=== PATIENT | female | born 1955 | race Caucasian/White ===

== ENCOUNTER 2019-02-28 12:07 | Emergency (ER) | payer MEDICARE, OTHER ==
[~2019-02-28] VITALS: Ht 167.6 cm; Wt 73.9 kg
--- NOTE | 2019-02-28 12:19 | PHYS DOC ---
Adult General Chief Complaint Chief Complaint: BACK PAIN OR INJURY [facility] HPI Patient is a 64-year-old female who presents with complaint of chronic lower back pain. Patient is out at the medical [place] and has a history of chronic back pain ever since falling as a child. Patient admits to history of fibromyalgia. Patient states that she takes hydrocodone and tramadol for her pain and states that pain is been present since yesterday after going for radiation treatment for breast cancer. Patient states that she thinks that lying down on the hard metal plate while receiving the treatment had contributed to the back pain. She states that she has been given both hydrocodone and tramadol today without relief of her pain. She rates pain currently at a 4 out of 10. She states the pain radiates down both of her legs. She describes pain as a deep ache and sharp at the same time.[] Review of Systems Review of Systems Constitutional: Denies fever or chills [] Respiratory: Denies cough or shortness of breath [] Cardiovascular: No additional information not addressed in HPI [] GI: Denies abdominal pain, nausea, vomiting or diarrhea [] : Denies dysuria or hematuria [] Musculoskeletal: Complains of lower back and bilateral buttock pain [] Integument: Denies rash or skin lesions [] Neurologic: Denies loss or bowel or bladder control[] Physical Exam Physical Exam Constitutional: Well developed, well nourished, no acute distress, non-toxic appearance. [] Neck: Normal range of motion, no tenderness, supple, no stridor. [] Cardiovascular:Heart rate regular rhythm, no murmur [] Lungs & Thorax: Bilateral breath sounds clear to auscultation [] Abdomen: Bowel sounds normal, soft, no tenderness. [] Skin: Warm, dry, no erythema, no rash. [] Back: Patient reports to tenderness to palpation primarily around the lumbosacral junction and around the bilateral sacral sulcus. [] Extremities: No tenderness, no cyanosis, no clubbing, ROM intact. [] Neurologic: Alert and oriented X 3, no focal deficits noted. [] EKG EKG [] Radiology/Procedures Radiology/Procedures [] Course & Med Decision Making Course & Med Decision Making Pertinent Labs and Imaging studies reviewed. (See chart for details) [] Dragon Disclaimer Dragon Disclaimer This electronic medical record was generated, in whole or in part, using a voice recognition dictation system. Departure Departure: Impression: Primary Impression: Chronic back pain Disposition: 01 HOME, SELF-CARE Condition: STABLE Patient Instructions: Chronic Back Pain Problem Qualifiers Primary Impression: Chronic back pain Back pain location: back pain in unspecified location Back pain laterality: bilateral Qualified Codes: M54.9 - Dorsalgia, unspecified; G89.29 - Other chronic pain RAMONE RICARDO Jr. DO February 28, 2019 12:19
[2019-02-28 12:27] VITALS: BP 107/72
[2019-02-28] MEDS ORDERED: ORPHENADRINE CITRATE 60 MG/2 ML VIAL. IM ONE (12:30)
[2019-02-28] MEDS ORDERED: MORPHINE SULFATE 4 MG/ML DISP.SYRIN. IM ONE (12:30)
== END 2019-02-28 13:05 | disposition home or self-care (01) ==
LOC: ER 12:07
DX: G89.29 Other chronic pain (principal); M54.5 Low back pain; M79.7 Fibromyalgia
CPT/HCPCS: 96372; 99284; J2270; J2360

== ENCOUNTER 2019-05-31 11:56 | Emergency (ER) | payer MEDICARE, MEDICAID ==
[~2019-05-31] VITALS: Ht 167.6 cm; Wt 73.9 kg
--- NOTE | 2019-05-31 12:17 | PHYS DOC ---
Past History Past Medical History: Bipolar, Cancer (breast), Depression, Other Past Surgical History: Other Alcohol Use: None Drug Use: None Adult General Chief Complaint Chief Complaint: PAIN CONTROL HPI HPI Patient is a 64-year-old female presents with tailbone pain. She has had this discomfort on and off for the past year. Was having severe pain today prior to receiving her narcotic pain medicine from the assisted care facility where she resides. The administer the medicine just prior to transport by EMS and she reports feeling better. 7 history of breast cancer. She also has a history of microdiscectomy in her low back. She denies any loss of bowel or bladder control. Denies any fever. Denies any numbness or weakness. Pain is currently mild to moderate in intensity. No radiation of the discomfort.[] Review of Systems Review of Systems Constitutional: Denies fever or chills [] Eyes: Denies change in visual acuity, redness, or eye pain [] HENT: Denies nasal congestion or sore throat [] Respiratory: Denies cough or shortness of breath [] Cardiovascular: No chest pain or palpitations[] GI: Denies abdominal pain, nausea, vomiting, bloody stools or diarrhea [] : Denies dysuria or hematuria [] Musculoskeletal: See history of present illness[] Integument: Denies rash or skin lesions [] Neurologic: Denies headache, focal weakness or sensory changes [] Endocrine: Denies polyuria or polydipsia [] All other systems were reviewed and found to be within normal limits, except as documented in this note. Allergies Allergies Allergies Coded Allergies Type Severity Reaction Last Updated Verified amitriptyline Allergy Unknown 02/28/19 Yes Physical Exam Physical Exam Constitutional: Well developed, well nourished, no acute distress, non-toxic appearance. [] HENT: Normocephalic, atraumatic, bilateral external ears normal, oropharynx moist, no oral exudates, nose normal. [] Eyes: PERRLA, EOMI, conjunctiva normal, no discharge. [] Neck: Normal range of motion, no tenderness, supple, no stridor. [] Cardiovascular:Heart rate regular rhythm, no murmur [] Lungs & Thorax: Bilateral breath sounds clear to auscultation [] Abdomen: Bowel sounds normal, soft, no tenderness, no masses, no pulsatile masses. [] Skin: Warm, dry, no erythema, no rash. [] Back: Mild tenderness sacrum/coccyx region. There is no step-off or crepitus. No skin breakdown., no CVA tenderness. [] Extremities: No tenderness, no cyanosis, no clubbing, ROM intact, no edema. [] Neurologic: Alert and oriented X 3, normal motor function, normal sensory functi on, no focal deficits noted. [] Psychologic: Affect normal, judgement normal, mood normal. [] EKG EKG [] Radiology/Procedures Radiology/Procedures PROCEDURE: SACRUM & COCCYX 3V SACRUM COCCYX 3V History: Tailbone pain, history of breast cancer Comparison: None. Findings: 3 views of the sacrum and coccyx are submitted. Sacrum is poorly visualized on the AP views due to overlying stool and gas. There is some angulation of the coccyx with apex directed posteriorly, uncertain chronicity. Impression: 1. There is some angulation of the coccyx, apex directed posteriorly of uncertain chronicity. Evaluation of sacrum is limited due to bowel gas and stool. If there is suspicion for marrow replacing process, MRI may be beneficial. [] Course & Med Decision Making Course & Med Decision Making Pertinent Labs and Imaging studies reviewed. (See chart for details) ED course: Patient arrived, was placed in bed, and tolerated exam well. Exam of the sacrum and coccyx was performed with plant attendant. She was transported to and from radiology with any complications. After return of the imaging findings, these were discussed with the patient voiced understanding. Patient's pain was improved. She was discharged in improved condition. All questions were answered. Medical decision making: There is no evidence of an acute fracture or dislocation. Patient may need to have an MRI for further evaluation given her history of breast cancer however no MRI is available at [facility] and it is not of emergent necessity. No evidence of cauda equina syndrome.[] Dragon Disclaimer Dragon Disclaimer This electronic medical record was generated, in whole or in part, using a voice recognition dictation system. Departure Departure: Impression: Primary Impression: Coccygeal pain, chronic Disposition: HOME, SELF-CARE Condition: STABLE Referrals: DEANNE IGLESIAS (PCP) Follow-up in 2 days Patient Instructions: Tailbone Injury Additional Instructions: Follow-up with your regular doctor in 2 days. There is no evidence of a fracture or dislocation today on x-rays. Giving your history of previous breast cancer, you may need to have an MRI which is not available at [facility] for further evaluation. Return to the ER if worsening pain or any other concerns. Scripts Meloxicam (MELOXICAM) 7.5 Mg Tablet 7.5 MG PO DAILY for PAIN, #20 TAB Prov: OLIVA JAVIER DO 05/31/19 OLIVA JAVIER DO May 31, 2019 12:17
--- NOTE | 2019-05-31 12:41 | RAD ---
SACRUM COCCYX 3V History: Tailbone pain, history of breast cancer Comparison: None. Findings: 3 views of the sacrum and coccyx are submitted. Sacrum is poorly visualized on the AP views due to overlying stool and gas. There is some angulation of the coccyx with apex directed posteriorly, uncertain chronicity. Impression: 1. There is some angulation of the coccyx, apex directed posteriorly of uncertain chronicity. Evaluation of sacrum is limited due to bowel gas and stool. If there is suspicion for marrow replacing process, MRI may be beneficial. Electronically signed by: Hosea Tian MD (05/31/2019 12:38 PM) [facility]
[2019-05-31] MEDS ORDERED: MELO7.5T29 PO (12:59)
[2019-05-31 13:26] VITALS: BP 108/68
== END 2019-05-31 13:40 | disposition home or self-care (01) ==
LOC: ER 11:56
DX: M53.3 Sacrococcygeal disorders, not elsewhere classified (principal); G89.29 Other chronic pain; Z88.8 Allergy status to other drugs, medicaments and biological substances
CPT/HCPCS: 72220; 99284

== ENCOUNTER 2019-06-02 16:24 | Emergency (ER) | payer MEDICARE, MEDICAID ==
[~2019-06-02] VITALS: Ht 167.6 cm; Wt 73.9 kg
[~2019-06-02 16:24] MED LIST: MELO7.5T29 PO
--- NOTE | 2019-06-02 16:40 | EKG ---
[address] [address] Test Date: 2019-06-02 Test Time: 16:39:48 Pat Name: DOMINICK CHIU Department: Room: Gender: F Travel Guide: : 1955 Requested By: OLIVA JAVIER Order Number: [id number] Reading MD: Measurements Intervals [place] Rate: 86 P: 42 SD: 164 QRS: 14 QRSD: 80 T: 39 QT: 368 QTc: 443 Interpretive Statements SINUS RHYTHM R-S TRANSITION ZONE IN V LEADS DISPLACED TO THE RIGHT QRS(T) CONTOUR ABNORMALITY CONSIDER ANTEROLATERAL MYOCARDIAL DAMAGE POSSIBLY ABNORMAL ECG RI6.01 No previous ECG available for comparison
--- NOTE | 2019-06-02 16:43 | PHYS DOC ---
Past History Past Medical History: Bipolar, Cancer, Depression, Other (OLIVA JAVIER DO) Past Surgical History: Other (OLIVA JAVIER DO) Smoking: Non-smoker Alcohol Use: None Drug Use: None (OLIVA JAVIER DO) Adult General HPI HPI Patient is a 64-year-old female presents from the [facility] care facility where she resides after having an unwitnessed fall and reported change in mental status and "fixed and sluggish pupils." EMS reports notes that she has a normal respiratory rate and normal blood sugar. Patient is on narcotic pain medicines for history of tailbone pain and other pain related issues. There has been no recent change in this narcotic pain medicine dosage. Patient currently denies any chest discomfort. Per EMS port patient had some chest discomfort like her usual fibromyalgia. Patient is denying any of this chest discomfort at this time. Patient denies any nausea or vomiting. Reports that her tailbone pain for which she was seen by me 2 days ago is doing well. She does have a history of frequent falls. [] (OLIVA JAVIER DO) Review of Systems Review of Systems Constitutional: Denies fever or chills [] Eyes: Denies change in visual acuity, redness, or eye pain [] HENT: Denies nasal congestion or sore throat [] Respiratory: Denies cough or shortness of breath [] Cardiovascular: Denies any chest pain or palpitations[] GI: Denies abdominal pain, nausea, vomiting, bloody stools or diarrhea [] : Denies dysuria or hematuria [] Musculoskeletal: Denies back pain or joint pain [] Integument: Denies rash or skin lesions [] Neurologic: Denies headache, focal weakness or sensory changes [] Endocrine: Denies polyuria or polydipsia [] All other systems were reviewed and found to be within normal limits, except as documented in this note. (OLIVA JAVIER DO) Allergies Allergies Allergies Coded Allergies Type Severity Reaction Last Updated Verified amitriptyline Allergy Unknown 02/28/19 Yes (OLIVA JAVIER DO) Physical Exam Physical Exam Constitutional: Well developed, well nourished, no acute distress, non-toxic appearance. [] HENT: Normocephalic, atraumatic, bilateral external ears normal, oropharynx moist, no oral exudates, nose normal. [] Eyes: PERRLA, EOMI, conjunctiva normal, no discharge. [] Neck: Normal range of motion, no tenderness, supple, no stridor. [] Cardiovascular:Heart rate regular rhythm, no murmur [] Lungs & Thorax: Bilateral breath sounds clear to auscultation [] Abdomen: Bowel sounds normal, soft, no tenderness, no masses, no pulsatile masses. [] Skin: Warm, dry, no erythema, no rash. [] Back: No tenderness, no CVA tenderness. [] Extremities: No tenderness, no cyanosis, no clubbing, ROM intact, no edema. [] Neurologic: Alert and oriented X 2-person [address], normal motor function, normal sensory function, no focal deficits noted. [] Psychologic: Affect flat, mood normal. [] (OLIVA JAVIER DO) EKG EKG EKG shows a sinus rhythm at 86 bpm, normal axis, QTC of 443 ms, no ST elevations. No old EKG available for comparison. Interpreted by me at 1638.[] (OLIVA JAVIER DO) Radiology/Procedures Radiology/Procedures [] (OLIVA JAVIER DO) Impressions: Exam: Chest one view. Pelvis one view INDICATION: Altered mental status TECHNIQUE: Frontal view of the chest. Frontal view of pelvis Comparisons: None FINDINGS: CHEST: The cardiomediastinal silhouette is within normal limits. Pulmonary vessels are mildly prominent. The lung and pleural spaces are clear. Pelvis: Bone mineralization and development are normal. No acute or healed fractures. Soft tissues are unremarkable. Joint spaces are well-maintained. IMPRESSION: 1. Findings which may relate to mild pulmonary edema. 2. No acute osseous abnormality of the pelvis. Electronically signed by: Vasquez Munguia MD (06/02/2019 6:16 PM) [facility] DICTATED AND SIGNED BY: VASQUEZ MUNGUIA MD DATE: 06/02/191815 CC: OLIVA JAVIER DO; DEANNE IGLESIAS ~ Exam: CT cervical spine INDICATION: Fall, head and neck pain TECHNIQUE: Sequential axial images through the cervical spine obtained without IV contrast. Sagittal and coronal reformatted images were reconstructed from the axial data and reviewed. Comparisons: None FINDINGS: Visualized intracranial structures are unremarkable. Changes of anterior cervical fusion at C5-C6 with bilateral interbody screws and interconnecting vertical stabilization plate. Vertebral body heights are well-maintained. Mild grade 1 anterolisthesis of C7 on T1. Fracture to the cervical spine is not identified. C3-C4 moderate left-sided facet and uncovertebral arthropathy causing mild neural foraminal stenosis. C4-C5: Severe facet and uncovertebral arthropathy causing severe left-sided neural foraminal stenosis. Visualized paraspinal soft tissues are unremarkable. IMPRESSION: 1. Negative CT C-spine for acute traumatic injury. 2. Spondylotic changes in the cervical spine as described above greatest at C4-C5 with severe left-sided neural foraminal stenosis. Exposure: One or more of the following in the visualized dose reduction techniques were utilized for this examination: 1. Automated exposure control 2. Adjustment of the MA and/or KV according to patient size 3. Use of iterative of reconstructive technique Electronically signed by: Vasquez Munguia MD (06/02/2019 5:31 PM) [facility] DICTATED AND SIGNED BY: VASQUEZ MUNGUIA MD DATE: 06/02/191730 CC: OLIVA JAVIER DO; DEANNE IGLESIAS ~ (MARIBEL HINOJOSA DO) Course & Med Decision Making Course & Med Decision Making Pertinent Labs and Imaging studies reviewed. (See chart for details) ED course: Patient arrived, was placed in bed, in tolerated exam well. She was transported to and from radiology with any complications. At the time of this dictation laboratory and imaging results are in progress. Patient care was endorsed to the nighttime physician at 1800.[] (OLIVA JAVIER DO) Course & Med Decision Making The patient's labs are unremarkable. Her x-rays do not show any acute findings. She does not appear to have any significant injuries. Her sleepiness is likely due to her pain medication. The documentation with the care facility shows that she is getting [place] 10/325. This higher doses most likely related to her unsteadiness and being drowsy. The patient was reassured by her results. She would like to return to her care facility. I believe this is reasonable. She is stable for discharge at this time. (MARIBEL HINOJOSA DO) Dragon Disclaimer Dragon Disclaimer This electronic medical record was generated, in whole or in part, using a voice recognition dictation system. (OLIVA JAVIER DO) Departure Departure: Impression: Primary Impression: Fall Disposition: 01 HOME, SELF-CARE Condition: STABLE Referrals: DEANNE IGLESIAS (PCP) Patient Instructions: Fall Prevention and Home Safety, [id number] Problem Qualifiers Primary Impression: Fall Encounter type: initial encounter Qualified Codes: W19.XXXA - Unspecified fall, initial encounter OLIVA JAVIER DO Jun 02, 2019 16:43 MARIBEL HINOJOSA DO Jun 02, 2019 18:38
--- NOTE | 2019-06-02 17:34 | RAD ---
Exam: CT cervical spine INDICATION: Fall, head and neck pain TECHNIQUE: Sequential axial images through the cervical spine obtained without IV contrast. Sagittal and coronal reformatted images were reconstructed from the axial data and reviewed. Comparisons: None FINDINGS: Visualized intracranial structures are unremarkable. Changes of anterior cervical fusion at C5-C6 with bilateral interbody screws and interconnecting vertical stabilization plate. Vertebral body heights are well-maintained. Mild grade 1 anterolisthesis of C7 on T1. Fracture to the cervical spine is not identified. C3-C4 moderate left-sided facet and uncovertebral arthropathy causing mild neural foraminal stenosis. C4-C5: Severe facet and uncovertebral arthropathy causing severe left-sided neural foraminal stenosis. Visualized paraspinal soft tissues are unremarkable. IMPRESSION: 1. Negative CT C-spine for acute traumatic injury. 2. Spondylotic changes in the cervical spine as described above greatest at C4-C5 with severe left-sided neural foraminal stenosis. Exposure: One or more of the following in the visualized dose reduction techniques were utilized for this examination: 1. Automated exposure control 2. Adjustment of the MA and/or KV according to patient size 3. Use of iterative of reconstructive technique Electronically signed by: Vasquez Lowery MD (06/02/2019 5:31 PM) [facility]
--- NOTE | 2019-06-02 18:19 | RAD ---
Exam: Chest one view. Pelvis one view INDICATION: Altered mental status TECHNIQUE: Frontal view of the chest. Frontal view of pelvis Comparisons: None FINDINGS: CHEST: The cardiomediastinal silhouette is within normal limits. Pulmonary vessels are mildly prominent. The lung and pleural spaces are clear. Pelvis: Bone mineralization and development are normal. No acute or healed fractures. Soft tissues are unremarkable. Joint spaces are well-maintained. IMPRESSION: 1. Findings which may relate to mild pulmonary edema. 2. No acute osseous abnormality of the pelvis. Electronically signed by: Vasquez Lowery MD (06/02/2019 6:16 PM) [facility]
[2019-06-02 18:32] LABS: BASO % 0 % (0-3); EOS # 0.1 x10^3/uL (0.0-0.7); EOS % 1 % (0-3); HEMATOCRIT 40.7 % (36.0-47.0); HEMOGLOBIN 13.6 g/dL (12.0-15.5); LYMPH # 1.3 x10^3/uL (1.0-4.8); LYMPH % 15 % (24-48); MEAN CORPUSCULAR HEMOGLOBIN 33 pg (25-35); MEAN CORPUSCULAR HGB CONC 33 g/dL (31-37); MEAN CORPUSCULAR VOLUME 99 fL (79-100); MONO # 0.8 x10^3/uL (0.0-1.1); MONO % 10 % (0-9); NEUT # 6.4 x10^3uL (1.8-7.7); NEUT % 74 % (31-73); PLATELET COUNT 195 x10^3/uL (140-400); RED CELL DISTRIBUTION WIDTH 12.9 % (11.5-14.5); WHITE BLOOD COUNT 8.6 x10^3/uL (4.0-11.0)
[2019-06-02 18:55] LABS: MAGNESIUM 2.1 mg/dL (1.8-2.4)
[2019-06-02 19:53] LABS: BACTERIA,URINE FEW /HPF (0-FEW); BILIRUBIN,URINE NEG (NEG); CLARITY,URINE CLOUDY; COLOR,URINE YELLOW; GLUCOSE,URINE NEG (NEG); NITRITE,URINE NEG (NEG); RBC,URINE OCC /HPF (0-2); SQUAMOUS EPITHELIAL CELL,UR OCC /LPF; UROBILINOGEN,URINE 0.2 mg/dL (0.2 mg/dL); WBC,URINE TNTC /HPF (0-4)
[2019-06-02 23:00] VITALS: BP 122/68
[2019-06-02] MEDS ORDERED: HYDROcodone/APAP 5/325MG 1 TAB TABLET PO ONE (23:00)
== END 2019-06-02 20:55 | disposition home or self-care (01) ==
LOC: ER 16:30
DX: R41.82 Altered mental status, unspecified (principal); M53.3 Sacrococcygeal disorders, not elsewhere classified; R51 Headache; M54.2 Cervicalgia; R07.89 Other chest pain; Z88.8 Allergy status to other drugs, medicaments and biological substances; W18.39XA Other fall on same level, initial encounter; Y93.89 Activity, other specified; Y92.89 Other specified places as the place of occurrence of the external cause; Y99.8 Other external cause status
CPT/HCPCS: 36415; 71045; 72125; 72170; 81001; 83735; 83880; 84484; 85025; 87040; 87086; 93005; 99285

== ENCOUNTER 2019-07-07 15:41 | Inpatient (IN) | payer MEDICARE, MEDICAID ==
[~2019-07-07] VITALS: Ht 167.6 cm; Wt 77.6 kg
--- NOTE | 2019-07-07 16:03 | PHYS DOC ---
Past History Past Medical History: Anemia, Bipolar, Cancer, Depression, Fibromyalgia, UTI, Other (OLIVA JAVIER DO) Past Medical History: Anxiety, Arthritis (KIM LAYTON MD) Past Surgical History: Other (OLIVA JAVIER DO) Smoking: Non-smoker Alcohol Use: None Drug Use: None (OLIVA JAVIER DO) Adult General Chief Complaint Chief Complaint: ANXIETY/PANIC ATTACK HPI HPI Patient is a 64-year-old female with behavioral issues and noncompliance at the [facility] care facility where she resides. She was just released yesterday from the [facility] behavioral health unit. She was admitted for similar behavioral issues. She is denying any self-harm or harm of others ideation. Reports that she is "irritated." Nothing makes this irritation better or worse. History is limited from the patient due to poor recall and tangential thinking.[] (OLIVA JAVIER DO) Review of Systems Review of Systems Constitutional: Denies fever or chills [] Eyes: Denies change in visual acuity, redness, or eye pain [] HENT: Denies nasal congestion or sore throat [] Respiratory: Denies cough or shortness of breath [] Cardiovascular: No chest pain or palpitations[] GI: Denies abdominal pain, nausea, vomiting, bloody stools or diarrhea [] : Denies dysuria or hematuria [] Musculoskeletal: Denies back pain or joint pain [] Integument: Denies rash or skin lesions [] Neurologic: Denies headache, focal weakness or sensory changes [] Endocrine: Denies polyuria or polydipsia [] All other systems were reviewed and found to be within normal limits, except as documented in this note. (OLIVA JAVIER DO) Allergies Allergies Allergies Coded Allergies Type Severity Reaction Last Updated Verified amitriptyline Allergy Unknown 02/28/19 Yes (OLIVA JAVIER DO) Physical Exam Physical Exam Constitutional: Well developed, well nourished, no acute distress, non-toxic appearance. [] HENT: Normocephalic, atraumatic, bilateral external ears normal, oropharynx moist, no oral exudates, nose normal. [] Eyes: PERRLA, EOMI, conjunctiva normal, no discharge. [] Neck: Normal range of motion, no tenderness, supple, no stridor. [] Cardiovascular:Heart rate regular rhythm, no murmur [] Lungs & Thorax: Bilateral breath sounds clear to auscultation [] Abdomen: Bowel sounds normal, soft, no tenderness, no masses, no pulsatile masses. [] Skin: Warm, dry, no erythema, no rash. [] Back: No tenderness, no CVA tenderness. [] Extremities: No tenderness, no cyanosis, no clubbing, ROM intact, no edema. [] Neurologic: Alert and oriented X 2, normal motor function, normal sensory function, no focal deficits noted. [] Psychologic: Affect flat, judgement normal, mood normal. Tangential thinking is present. Patient asked me to "help with her shoes because she [place] them [place] the rode[place]."[] (OLIVA JAVIER DO) Current Patient Data Vital Signs Vital Signs Date Time Temp Pulse Resp B/P (MAP) Pulse Ox O2 Delivery O2 Flow Rate FiO2 07/07/19 15:41 91 26 127/70 (89) 94 Room Air (OLIVA JAVIER DO) EKG EKG EKG shows a sinus rhythm at 93 bpm, normal axis, no ST elevations. Interpreted by me at 1630[] (OLIVA JAVIER DO) Radiology/Procedures Radiology/Procedures [] (OLIVA JAVIER DO) Radiology/Procedures [address] [address] IMAGING REPORT Signed PATIENT: DOMINICK CHIU ACCOUNT: [id number] : 1955 LOCATION: ER AGE: 64 SEX: F EXAM STATUS: REG ER ORD. PHYSICIAN: OLIVA JAVIER DO REASON: FALL W/ BEHAVIORAL CHANGE PROCEDURE: CT HEAD AND CERVICAL SPINE WO PQRS Compliance statement: One or more of the following individualized dose reduction techniques were utilized for this examination: 1. Automated exposure control. 2. Adjustment of the mA and/or kV according to patient size. 3. Use of iterative reconstruction technique. Indication:Fall with behavioral change. TECHNIQUE: CT head without IV contrast COMPARISON: None FINDINGS: Motion artifact limiting optimal evaluation. No pathologic extra-axial or intra-axial fluid collection. The ventricles and basal cisterns are within normal limits. No acute intracranial bleed. No focal loss of howard-white differentiation. 3 mm focus of low attenuation in the left basal ganglia. No large scalp hematoma. Orbits are within normal limits. No acute calvarial fracture. Visualized paranasal sinuses and mastoid air cells are clear. IMPRESSION: Limited exam due to motion artifact. 1. No apparent intracranial bleed. 2. 3 mm focus of attenuation in the left basal ganglia may represent lacunar infarct, age indeterminate. If concern for acute ischemic stroke is high, please consider MRI brain. Indication:Fall. TECHNIQUE: CT of the cervical spine without IV contrast with multiplanar reformats. COMPARISON:None FINDINGS/impression: Nondiagnostic cervical spine CT due to significant motion artifact. Repeat scan recommended. Electronically signed by: Sam Dawn DO (07/07/2019 7:06 PM) [facility] DICTATED AND SIGNED BY: SAM DAWN DO DATE: 07/07/191905 CC: OLIVA JAVIER DO; KELSIEDEANNE ~ (KIM LAYTON MD) Course & Med Decision Making Course & Med Decision Making Pertinent Labs and Imaging studies reviewed. (See chart for details) ED course: Patient arrived, was placed in bed, and tolerated exam well. She threw water at one of the nurses. She was able to be redirected for a while. However, she ultimately needed some benzodiazepine to help with some of her agitation and wandering. At the time of this dictation laboratory testing is in process. Patient care is endorsed to the nighttime physician. Medical decision making: Older patient with mental health issues that was discharged from [facility] yesterday.[] (OLIVA JAVIER DO) Course & Med Decision Making [facility]. Impression: 1. Mental Status Change 2. Behavior Manic 3. Hx. Bipolar 4. Dementia 5. Fibromyalgia 6. Hx. UTI's 7. Chronic Pain 8. Dyskinesia 9. Hx. Intraductal Carnciooma 10. Decondition 11. Lumbar Radiculopathy 12. Gait disorder 13. Anxiety Disorder Pt. admitted Tele. Dr. Puckett for further eval. and tx. (KIM LAYTON MD) Dragon Disclaimer Dragon Disclaimer This electronic medical record was generated, in whole or in part, using a voice recognition dictation system. (OLIVA JAVIER DO) Departure Departure: Disposition: 01 HOME/RESIDENCE PRIOR TO ADM Condition: STABLE Referrals: DEANNE IGLESIAS (PCP) Pretty Disclaimer This chart was dictated in whole or in part using Voice Recognition software in a busy, high-work load, and often noisy Emergency Department environment. It may contain unintended and wholly unrecognized errors or omissions. (KIM LAYTON MD) OLIVA JAVIER DO Jul 07, 2019 16:02 KIM LAYTON MD Jul 07, 2019 19:19
[2019-07-07 16:56] LABS: BASO % 1 % (0-3); EOS # 0.1 x10^3/uL (0.0-0.7); EOS % 1 % (0-3); HEMATOCRIT 40.9 % (36.0-47.0); HEMOGLOBIN 13.6 g/dL (12.0-15.5); LYMPH # 1.6 x10^3/uL (1.0-4.8); LYMPH % 21 % (24-48); MEAN CORPUSCULAR HEMOGLOBIN 31 pg (25-35); MEAN CORPUSCULAR HGB CONC 33 g/dL (31-37); MEAN CORPUSCULAR VOLUME 93 fL (79-100); MONO # 0.9 x10^3/uL (0.0-1.1); MONO % 13 % (0-9); NEUT # 4.8 x10^3uL (1.8-7.7); NEUT % 65 % (31-73); PLATELET COUNT 282 x10^3/uL (140-400); RED CELL DISTRIBUTION WIDTH 12.3 % (11.5-14.5); WHITE BLOOD COUNT 7.4 x10^3/uL (4.0-11.0)
[2019-07-07 17:08] LABS: ALBUMIN 4.1 g/dL (3.4-5.0); ALBUMIN/GLOBULIN RATIO 1.5 (1.0-1.7); CALCIUM 9.9 mg/dL (8.5-10.1); CREATININE 0.9 mg/dL (0.6-1.0); MAGNESIUM 2.3 mg/dL (1.8-2.4); POTASSIUM 4.3 mmol/L (3.5-5.1); TOTAL BILIRUBIN 0.3 mg/dL (0.2-1.0); TOTAL PROTEIN 6.9 g/dL (6.4-8.2)
--- NOTE | 2019-07-07 18:04 | EKG ---
[address] [address] Test Date: 2019-07-07 Test Time: 16:47:42 Pat Name: DOMINICK CHIU Department: Room: Gender: F Urgent Care Technician: DOREEN : 1955 Requested By: OLIVA JAVIER Order Number: [id number] Reading MD: Measurements Intervals [place] Rate: 93 P: 0 ID: 120 QRS: 17 QRSD: 76 T: 32 QT: 358 QTc: 448 Interpretive Statements SINUS RHYTHM QRS(T) CONTOUR ABNORMALITY CONSIDER ANTEROLATERAL MYOCARDIAL DAMAGE POSSIBLY ABNORMAL ECG RI6.01 No previous ECG available for comparison
[2019-07-07 18:44] LABS: BACTERIA,URINE FEW /HPF (0-FEW); BILIRUBIN,URINE NEG (NEG); CLARITY,URINE CLEAR; COLOR,URINE YELLOW; GLUCOSE,URINE NEG (NEG); NITRITE,URINE NEG (NEG); SQUAMOUS EPITHELIAL CELL,UR FEW /LPF; UROBILINOGEN,URINE 0.2 mg/dL (0.2 mg/dL)
--- NOTE | 2019-07-07 19:09 | RAD ---
PQRS Compliance statement: One or more of the following individualized dose reduction techniques were utilized for this examination: 1. Automated exposure control. 2. Adjustment of the mA and/or kV according to patient size. 3. Use of iterative reconstruction technique. Indication:Fall with behavioral change. TECHNIQUE: CT head without IV contrast COMPARISON: None FINDINGS: Motion artifact limiting optimal evaluation. No pathologic extra-axial or intra-axial fluid collection. The ventricles and basal cisterns are within normal limits. No acute intracranial bleed. No focal loss of howard-white differentiation. 3 mm focus of low attenuation in the left basal ganglia. No large scalp hematoma. Orbits are within normal limits. No acute calvarial fracture. Visualized paranasal sinuses and mastoid air cells are clear. IMPRESSION: Limited exam due to motion artifact. 1. No apparent intracranial bleed. 2. 3 mm focus of attenuation in the left basal ganglia may represent lacunar infarct, age indeterminate. If concern for acute ischemic stroke is high, please consider MRI brain. Indication:Fall. TECHNIQUE: CT of the cervical spine without IV contrast with multiplanar reformats. COMPARISON:None FINDINGS/impression: Nondiagnostic cervical spine CT due to significant motion artifact. Repeat scan recommended. Electronically signed by: Sam Dawn DO (07/07/2019 7:06 PM) [facility]
[2019-07-07] MEDS ORDERED: ONDANSETRON PF 4 MG/2 ML VIAL. IV PRN (20:45)
[2019-07-07] MEDS ORDERED: IV RINGERS SOLUTION,LACTATED 1,000 ML IV ONE (20:45)
[2019-07-07] MEDS ORDERED: diphenhydrAMINE 50 MG/ML VIAL IVP ONE (22:30)
[2019-07-07] MEDS ORDERED: OLANZapine IM 10 MG VIAL. IM ONE (22:45)
[2019-07-08] MEDS ORDERED: ZIPRASIDONE IM 20 MG VIAL. IM ONE ×2 (00:37→00:45)
[2019-07-08] MEDS: IV RINGERS SOLUTION,LACTATED 1,000 ML IV SCH ×3 (01:34→09:15)
[2019-07-08 01:50] VITALS: BP 149/78
[2019-07-08] MEDS ORDERED: ACET325T9 PO (02:36)
[2019-07-08] MEDS ORDERED: AMAN100T PO (02:36)
[2019-07-08] MEDS ORDERED: DILT120T PO (02:45)
[2019-07-08] MEDS ORDERED: BUSP15TA PO (02:45)
[2019-07-08] MEDS ORDERED: ANAS1TAB47 PO (02:45)
[2019-07-08] MEDS ORDERED: DIPH25CA58 PO (02:45)
[2019-07-08] MEDS ORDERED: BENZ2TAB5 PO (02:45)
[2019-07-08] MEDS ORDERED: CELE200C PO (02:45)
[2019-07-08] MEDS ORDERED: HYDR50CA PO ×2 (02:54)
[2019-07-08] MEDS ORDERED: LOPE-101 PO (02:54)
[2019-07-08] MEDS ORDERED: DULO60CA6 PO (02:54)
[2019-07-08] MEDS ORDERED: GABA-587 PO (02:54)
[2019-07-08] MEDS ORDERED: ZIPR20CA2 PO (02:54)
[2019-07-08] MEDS ORDERED: DULO30CA2 PO (02:54)
[2019-07-08] MEDS ORDERED: FERR325T14 PO (02:54)
[2019-07-08] MEDS ORDERED: CETI10TA16 PO (02:54)
[2019-07-08] MEDS ORDERED: MIRT15TA3 PO (02:54)
[2019-07-08] MEDS ORDERED: MAGN2400 PO (02:54)
[2019-07-08] MEDS ORDERED: FLUC100T4 PO (02:54)
[2019-07-08] MEDS ORDERED: SULF500T7 PO (03:39)
[2019-07-08] MEDS ORDERED: SENN-87 PO (03:39)
[2019-07-08] MEDS ORDERED: ONDA4TAB12 PO (03:39)
[2019-07-08] MEDS ORDERED: OXYC10TA46 PO (03:39)
[2019-07-08] MEDS ORDERED: VITA400C36 PO (03:39)
[2019-07-08] MEDS ORDERED: PANT40TA5 PO (03:39)
[2019-07-08] MEDS ORDERED: Influenza vaccine per PROTOCOL. MC SCH (04:00)
[2019-07-08 05:41] VITALS: BP 153/77
[2019-07-08 07:09] LABS: BASO % 0 % (0-3); EOS # 0.1 x10^3/uL (0.0-0.7); EOS % 1 % (0-3); HEMOGLOBIN 13.7 g/dL (12.0-15.5); LYMPH # 0.8 x10^3/uL (1.0-4.8); LYMPH % 10 % (24-48); MEAN CORPUSCULAR HEMOGLOBIN 31 pg (25-35); MEAN CORPUSCULAR HGB CONC 34 g/dL (31-37); MEAN CORPUSCULAR VOLUME 93 fL (79-100); MONO # 0.7 x10^3/uL (0.0-1.1); MONO % 9 % (0-9); NEUT # 6.3 x10^3uL (1.8-7.7); NEUT % 80 % (31-73); PLATELET COUNT 239 x10^3/uL (140-400); RED BLOOD COUNT 4.41 x10^6/uL (3.50-5.40); RED CELL DISTRIBUTION WIDTH 12.5 % (11.5-14.5); WHITE BLOOD COUNT 7.8 x10^3/uL (4.0-11.0)
[2019-07-08 07:11] LABS: CALCIUM 9.5 mg/dL (8.5-10.1); CREATININE 0.8 mg/dL (0.6-1.0); GFR 72.2; POTASSIUM 4.1 mmol/L (3.5-5.1)
[2019-07-08] MEDS ORDERED: LOPERAMIDE 2 MG CAPSULE PO PRN (08:00)
[2019-07-08] MEDS: busPIRone 15 MG TABLET. PO SCH ×2 (08:23→21:23)
[2019-07-08] MEDS: BENZTROPINE MESYLATE 1 MG TABLET PO SCH ×4 (08:23→21:26)
[2019-07-08] MEDS: hydrOXYzine PAMOATE 25 MG CAPSULE PO SCH ×3 (08:24→21:24)
[2019-07-08] MEDS: oxyCODONE ER 10 MG TAB.ER.12H PO SCH (08:24)
[2019-07-08] MEDS: DULoxetine HCL 30 MG CAPSULE.DR PO SCH (08:24)
[2019-07-08] MEDS ORDERED: LIDOCAINE 2% TOPICAL JELLY 30GM TUBE. TP PRN (09:00)
[2019-07-08] MEDS: ZIPRASIDONE 20 MG CAPSULE. PO SCH (09:35)
[2019-07-08] MEDS: AMANTADINE HCL 100 MG CAPSULE PO SCH ×2 (09:35→21:24)
[2019-07-08] MEDS: diphenhydrAMINE HCL 25 MG CAPSULE PO PRN ×2 (09:36→15:35)
[2019-07-08] MEDS: hydrOXYzine PAMOATE 25 MG CAPSULE PO PRN ×2 (09:36→15:34)
[2019-07-08 11:00] VITALS: BP 158/71
--- NOTE | 2019-07-08 11:26 | HP ---
ADMIT DATE: 07/08/2019 ATTENDING PHYSICIAN: Dr. Beth. CHIEF COMPLAINT: Agitation. HISTORY OF PRESENT ILLNESS: The patient is a 64-year-old female with longstanding psychiatric issues and dementia. She had been a resident at [facility] facility because of agitation, behavioral changes and psychosis and aggressive behavior. She was sent to a psychiatric inpatient facility in [facility]. She had been on the [facility] for unspecified period of time. She was just discharged back to [facility]. She became agitated. They could not handle there and again the story is very sketchy because the history is gleaned from the ER note, the patient cannot provide any details at all and there is no family here. [facility] people cannot handle her. They must have tried to get her back to [facility]. In any event, they tried to get her to the [facility] here at [facility]. Because of insurance purposes they could not clear her, she was stopped to the Emergency Room. She is admitted to the inpatient services, pending insurance approval, whether or not she qualifies for the unit upstairs. Therefore, I have seen the patient, I have examined her, I have gotten all the information I can, which remains quite limited. There is no family here. PAST MEDICAL HISTORY: Gleaning from the chart indicates that she has had longstanding bipolar disorder. She has had tardive dyskinesia, profound dementia, major depression, unspecified cancer and anemia of chronic disease and frequent urinary tract infections. She is very agitated, thrashing about. She is not in any acute distress. She is incontinent of stool. She had a significant amount of stools and she is unable to communicate to any degree nor can she follow any significant commands. Several doses of Ativan have been given her for her safety. Protective mitts have applied for patient's safety as she is pulling out her IV. MEDICATIONS: Her medications were reviewed. She had been taking Cymbalta. She was given OxyContin in the past. She also had Geodon and Ativan in the ED. She had an obligatory CT of the head and also CT of the cervical spine showed significant motion artifact and no obvious diagnosis could be made. A CT head without contrast showed no acute intracranial bleed. FAMILY HISTORY: Unobtainable. SOCIAL HISTORY: Unobtainable. REVIEW OF SYSTEMS: Unobtainable. PHYSICAL EXAMINATION: GENERAL: When I saw her, this is agitated female who was not aware of person, place or time. INITIAL VITAL SIGNS: Showed a blood pressure of 127/70, pulse is 91 and regular, respirations 16 unlabored. She was afebrile. HEENT: Head is without trauma. Noticeable tardive dyskinesia. Pupils were reactive. Sclerae were nonicteric. Oropharynx clear. No obstruction. NECK: Supple. No stridor. LUNGS: Shallow respirations. Otherwise clear, no acute rales or rhonchi identified. CARDIOVASCULAR: Showed regular heart tones. No obvious gallops. Peripheral pulses are palpable and full. ABDOMEN: Soft, scaphoid, nontender, no organomegaly. Bowel sounds were hypoactive. EXTREMITIES: Shows some contractures. She is not ambulatory at this time. She is thrashing about agitated with choreiform movement, which is quite irregular. She is incontinent of stool. SKIN: No obvious lesions identified. LABORATORY DATA: Obligatory blood works were drawn. Her hemoglobin was 13.6 g/dL with white count of 7400. Electrolytes showed a nonfasting blood sugar 116. Her chemistry panel was unremarkable with a sodium 140 mEq/L, potassium 4.3, creatinine is 0.9 mg percent. Liver panel, transaminases, total protein, alkaline phosphatase all within normal range. ASSESSMENT: 1. This 64-year-old female has profound agitation with purposeless movement. She is also poorly responsive related to her dementia. 2. History of bipolar disorder. 3. Profound dementia of the Alzheimer's type. 4. Anemia of chronic disease. 5. History of unspecified cancer. It is unclear as to what the tissue type. 6. Allergies, adverse reaction to AMITRIPTYLINE. PLAN: 1. Admit to the medical unit for now. 2. Ativan sparingly to help with agitation. 3. Protective mitts to avoid further damage. 4. Neurology consult regarding her movement disorder. 5. Psychiatry consult Dr. Cornelius has been placed. MILANA BETH MD DR: KRYSTLE/jason JOB#: [id number] / [id number] DULCE Marcelo MD
[2019-07-08 15:19] VITALS: BP 142/1
[2019-07-08 18:11] LABS: BILIRUBIN,URINE NEG (NEG); CLARITY,URINE CLOUDY; COLOR,URINE YELLOW; GLUCOSE,URINE NEG (NEG); NITRITE,URINE NEG (NEG); UROBILINOGEN,URINE 0.2 mg/dL (0.2 mg/dL)
[2019-07-08 18:12] LABS: BACTERIA,URINE MANY /HPF (0-FEW); RBC,URINE 0 /HPF (0-2); WBC,URINE 20-40 /HPF (0-4)
[2019-07-08 19:19] VITALS: BP 129/78
[2019-07-08] MEDS: DULoxetine HCL 60 MG CAPSULE.DR PO SCH (21:25)
[2019-07-08 22:13] VITALS: BP 126/83
--- NOTE | 2019-07-08 22:31 | PDOC ---
Exam Note: Sathya Note: Please also refer to the separate dictated note~for this date of service dictated separately.~Patient seen individually. Discussed the patient with Nursing staff reviewed the chart.~Reviewed interim history and current functioning. Reviewed vital signs,~Labs/ Radiology~and current medications noted below. Continue current treatment with the changes noted in the dictated addendum note Assessment: Vital Signs/I&O: Vital Signs Date Time Temp Pulse Resp B/P (MAP) Pulse Ox O2 Delivery O2 Flow Rate FiO2 07/08/19 22:13 97.6 93 22 126/83 (97) 92 Room Air 07/07/19 23:53 2.0 I & O 07/07/19 07/07/19 07/08/19 15:00 23:00 07:00 Intake Total 1000 ml Output Total 1 ml Balance 999 ml Labs: Laboratory Tests Test 07/08/19 01:43 07/08/19 06:40 07/08/19 17:40 Nasal Screen MRSA (PCR) Negative (Negative) White Blood Count 7.8 x10^3/uL (4.0-11.0) Red Blood Count 4.41 x10^6/uL (3.50-5.40) Hemoglobin 13.7 g/dL (12.0-15.5) Hematocrit 41.0 % (36.0-47.0) Mean Corpuscular Volume 93 fL (79-100) Mean Corpuscular Hemoglobin 31 pg (25-35) Mean Corpuscular Hemoglobin Concent 34 g/dL (31-37) Red Cell Distribution Width 12.5 % (11.5-14.5) Platelet Count 239 x10^3/uL (140-400) Neutrophils (%) (Auto) 80 % (31-73) H Lymphocytes (%) (Auto) 10 % (24-48) L Monocytes (%) (Auto) 9 % (0-9) Eosinophils (%) (Auto) 1 % (0-3) Basophils (%) (Auto) 0 % (0-3) Neutrophils # (Auto) 6.3 x10^3uL (1.8-7.7) Lymphocytes # (Auto) 0.8 x10^3/uL (1.0-4.8) L Monocytes # (Auto) 0.7 x10^3/uL (0.0-1.1) Eosinophils # (Auto) 0.1 x10^3/uL (0.0-0.7) Basophils # (Auto) 0.0 x10^3/uL (0.0-0.2) Sodium Level 144 mmol/L (136-145) Potassium Level 4.1 mmol/L (3.5-5.1) Chloride Level 107 mmol/L (98-107) Carbon Dioxide Level 27 mmol/L (21-32) Anion Gap 10 (6-14) Blood Urea Nitrogen 9 mg/dL (7-20) Creatinine 0.8 mg/dL (0.6-1.0) Estimated GFR (Cockcroft-Gault) 72.2 Glucose Level 125 mg/dL (70-99) H Calcium Level 9.5 mg/dL (8.5-10.1) Urine Collection Type Unknown Urine Color Yellow Urine Clarity Cloudy Urine pH 7.5 Urine Specific [place] 1.015 Urine Protein Neg (NEG-TRACE) Urine Glucose (UA) Neg mg/dL (NEG) Urine Ketones (Stick) Trace mg/dL (NEG) Urine Blood Trace (NEG) Urine Nitrite Neg (NEG) Urine Bilirubin Neg (NEG) Urine Urobilinogen Dipstick 0.2 mg/dL (0.2 mg/dL) Urine Leukocyte Esterase Mod (NEG) Urine RBC 0 /HPF (0-2) Urine WBC 20-40 /HPF (0-4) Urine Bacteria Many /HPF (0-FEW) Current Medications: Meds: Current Medications Medications (Trade) Dose Ordered Sig/Malena Route PRN Reason Start Time Stop Time Status Last Admin Dose Admin Lorazepam (Ativan Inj) 2 mg 1X ONCE IV 07/07/19 22:45 07/07/19 22:46 DC 07/07/19 22:45 Olanzapine (ZyPREXA IM) 10 mg 1X ONCE IM 07/07/19 22:45 07/07/19 22:46 DC 07/07/19 22:45 Ziprasidone (Geodon Im) 20 mg 1X ONCE IM 07/08/19 00:45 07/08/19 01:47 DC 07/08/19 00:51 Lorazepam (Ativan Inj) 1 mg 1X ONCE IV 07/08/19 08:00 07/08/19 08:03 DC 07/08/19 08:13 Buspirone HCl (Buspar) 15 mg BID PO 07/08/19 09:00 07/08/19 21:26 Diphenhydramine HCl (Benadryl) 50 mg PRN Q6HRS PRN PO DYSTONIC REACTION 07/08/19 08:00 07/08/19 15:36 Duloxetine HCl (Cymbalta) 30 mg DAILY PO 07/08/19 09:00 07/08/19 08:24 Duloxetine HCl (Cymbalta) 60 mg QHS PO 07/08/19 21:00 07/08/19 21:26 Loperamide HCl (Imodium) 4 mg PRN Q6HRS PRN PO DIARRHEA 07/08/19 08:00 07/08/19 08:24 Oxycodone HCl (OxyCONTIN) 10 mg DAILY PO 07/08/19 09:00 07/08/19 08:24 Ziprasidone (Geodon) 20 mg DAILY PO 07/08/19 09:00 07/08/19 09:36 Amantadine HCl (Symmetrel) 100 mg BID PO 07/08/19 09:00 07/08/19 21:26 Benztropine Mesylate (Cogentin) 4 mg QID PO 07/08/19 09:00 07/08/19 21:26 Hydroxyzine Pamoate (Vistaril) 50 mg PRN Q6HRS PRN PO itching 07/08/19 08:00 07/08/19 15:36 Hydroxyzine Pamoate (Vistaril) 50 mg TID PO 07/08/19 09:00 07/08/19 21:26 Lorazepam (Ativan Inj) 1 mg PRN Q2HR PRN IM/IV ANXIETY / AGITATION 07/08/19 08:15 07/08/19 15:36 I have reviewed the current psychotropics carefully including drug interactions. Risk benefit ratio favors no change other than as noted in my dictated progress note. Diagnosis: Problems: (1) Mental status alteration TENISHA WELCH MD Jul 08, 2019 22:31
[2019-07-09] MEDS ORDERED: MORPHINE SULFATE 4 MG/ML DISP.SYRIN. IV ONE (02:45)
--- NOTE | 2019-07-09 05:48 | CONS ---
DATE OF CONSULTATION: REFERRING PHYSICIAN: Dr. Puckett. REASON FOR CONSULTATION: Acute mental status changes. HISTORY OF PRESENT ILLNESS: This is a 64-year-old right-handed female who was admitted through Emergency Room yesterday on account of severe agitation, restless, less movement of the upper and lower extremities. The patient has been on the [facility] in [facility] for multiple psychiatric problems including dementia and possible bipolar disorder. She lately was transferred to [facility] in [place] for further evaluation. Since admission to skilled nursing until recently, the patient has been very agitated and not able to provide any information and could not find any information from the [facility]. She has been very restless and agitated since admission to the floor and she has been on Ativan, Benadryl and Cymbalta without relief of her symptoms. Apparently, the patient has had dementia and not able to provide any information at this evaluation. Initial nonenhanced head CT scan and CT of the cervical spine revealed no acute intracranial changes or any acute fracture of the cervical spine. PAST MEDICAL HISTORY: History of tardive dyskinesia secondary to previous use of psychotropic and again we do not have any information from [facility]. Other medical problems include history of Parkinson disease, left breast cancer named intraductal carcinoma, frequent urinary tract infections, fibromyalgia and multiple psychiatric problems include bipolar disorder, anxiety and depression. SOCIAL HISTORY: Currently, the patient is a [facility] resident. There is no history of smoking, alcohol drinking or illicit drug use. CURRENT MEDICATIONS: Include Cymbalta, lidocaine patches, Vistaril, ____ 5 mg q.i.d., amantadine 100 mg b.i.d., Geodon 20 mg daily, oxycodone 10 mg daily, BuSpar 15 mg b.i.d., lorazepam 1 mg q. 2 hours p.r.n. for anxiety and agitation, Imodium, Benadryl, Zofran. ALLERGIES: AMITRIPTYLINE. REVIEW OF SYSTEMS: A 10-point review of system non-obtainable. PHYSICAL EXAMINATION: GENERAL: Well-developed, well-nourished female, not in acute distress. VITAL SIGNS: Afebrile. She weighs 79.8 kilos. Blood pressure 142/71, respiratory rate 20, pulse is 99, temperature ____, oxygen saturation 94% on room air. HEENT: Normocephalic, atraumatic, otherwise unremarkable. NECK: Supple. Negative for carotid bruit, lymphadenopathy or thyromegaly. LUNGS: Clear to A and P. CARDIOVASCULAR: Regular rate and rhythm, normal S1, S2. ABDOMEN: Soft. Bowel sounds positive. EXTREMITIES: Negative for cyanosis, clubbing or pitting edema. NEUROLOGICAL EXAM: Mental Status: The patient is awake, but noncommunicative. She does not follow any commands and she is just restless, agitated, ____ movements of the upper and lower extremities. I could not recognize any resting tremor because of superimposed agitation. CRANIAL NERVES: Cranial nerves evaluation is limited at this time as the patient is noncooperative. MOTOR EXAMINATION: The patient moves upper and lower extremities spontaneously, but not typical for tardive dyskinesia. SENSORY: Revealed normal pinprick and light touch senses. Deep tendon reflexes were hypoactive with absent Achilles responses. Gait not tested. IMPRESSION: Multiple psychiatric problems include; 1. Involuntarily movement probably multifactorial including a history of tardive dyskinesia due to previous neuroleptic use. 2. Bipolar disorder, anxiety, depression and dementia. RECOMMENDATIONS: The patient has no significant neurological findings. The patient will benefit from going to [facility] as she has been recently discharged from there. In the meantime, I will recommend to Dr. Eaton to see the patient for further evaluation for further recommendations. M Savanna REBOLLEDO MD DR: AMBERLY/jason JOB#: [id number] / [id number]
[2019-07-09 06:32] VITALS: BP 131/79
[2019-07-09] MEDS: AMANTADINE HCL 100 MG CAPSULE PO SCH ×2 (08:21→19:57)
[2019-07-09] MEDS: hydrOXYzine PAMOATE 25 MG CAPSULE PO SCH ×3 (08:21→19:57)
[2019-07-09] MEDS: ZIPRASIDONE 20 MG CAPSULE. PO SCH (08:22)
[2019-07-09] MEDS: DULoxetine HCL 30 MG CAPSULE.DR PO SCH (08:23)
[2019-07-09] MEDS: BENZTROPINE MESYLATE 1 MG TABLET PO SCH ×4 (08:23→19:57)
[2019-07-09] MEDS: busPIRone 15 MG TABLET. PO SCH ×2 (08:23→19:58)
[2019-07-09] MEDS: oxyCODONE ER 10 MG TAB.ER.12H PO SCH (08:23)
[2019-07-09] MEDS ORDERED: FLU VAX QS 2019-20 (36MOS+)/PF 0.5 ML SYRINGE. VAX IM ONE (09:00)
[2019-07-09 11:10] VITALS: BP 112/63
[2019-07-09 15:25] VITALS: BP 121/69
--- NOTE | 2019-07-09 19:18 | PDOC ---
Exam Note: Sathya Note: Please also refer to the separate dictated note~for this date of service dictated separately.~Patient seen individually. Discussed the patient with Nursing staff reviewed the chart.~Reviewed interim history and current functioning. Reviewed vital signs,~Labs/ Radiology~and current medications noted below. Continue current treatment with the changes noted in the dictated addendum note Assessment: Vital Signs/I&O: Vital Signs Date Time Temp Pulse Resp B/P (MAP) Pulse Ox O2 Delivery O2 Flow Rate FiO2 07/09/19 15:25 98.7 87 121/69 (86) 92 Room Air 07/09/19 12:34 16 07/07/19 23:53 2.0 I & O 0 07/08/19 07/08/19 07/09/19 15:00 23:00 07:00 Intake Total 240 ml 1410 ml 0 ml Output Total 2 ml 1351 ml 500 ml Balance 238 ml 59 ml -500 ml Current Medications: Meds: Current Medications Medications (Trade) Dose Ordered Sig/Malena Route PRN Reason Start Time Stop Time Status Last Admin Dose Admin Duloxetine HCl (Cymbalta) 60 mg QHS PO 07/08/19 21:00 07/08/19 21:26 Morphine Sulfate (Morphine 4mg Syringe) 4 mg 1X ONCE IV 07/09/19 02:45 07/09/19 02:46 DC 07/09/19 03:20 Influenza Virus Vaccine Quadrival (Afluria Quad 2019-20 (3yr Up) Syringe) 0.5 ml ONCE ONCE VAX IM 07/09/19 09:00 07/09/19 09:02 DC 07/09/19 09:55 I have reviewed the current psychotropics carefully including drug interactions. Risk benefit ratio favors no change other than as noted in my dictated progress note. Diagnosis: Problems: (1) Anxiety disorder (2) Dementia, vascular, with delusions (3) Dementia, vascular, with depression (4) Dementia in Alzheimer's disease with delusions (5) Dementia in Alzheimer's disease with depression (6) Impulse control disorder TENISHA WELCH MD Jul 09, 2019 19:17
[2019-07-09 19:33] VITALS: BP 138/72
[2019-07-09] MEDS: DULoxetine HCL 60 MG CAPSULE.DR PO SCH (19:58)
--- NOTE | 2019-07-09 21:15 | CONS ---
DATE OF CONSULTATION: 07/08/2019 This late entry 07/08/2019 covers elements not covered in my initial note. IDENTIFYING DATA: The patient is a 64-year-old female referred to me by Dr. Puckett, her primary care physician, on account of hallucinations, both visual and auditory, being combative, yelling out, kicking, putting hands in the pants and playing with her poop. Reportedly, she also has drug-induced tardive dyskinesia. She has failed outpatient treatment and prior inpatient psychiatric hospitalization at [facility]. She has progressive dementia with delusions and was referred from the [facility] on account of agitation, behavioral changes, psychosis, and aggression. I have been asked to consult to follow her from a psychiatric standpoint and address her psychosis. The patient was seen individually in evening of 07/08/2019. Discussed with nursing staff, reviewed the chart. Reportedly, per nursing staff, the patient has been quite agitated all day, restless, constantly moving, but then she had about 1500 mL of urine removed by straight catheter and has been much calmer since then. CHIEF COMPLAINT: "No." The patient is quite sedated by the time I met with her in the evening. HISTORY OF PRESENT ILLNESS: The patient has a history of dementia, Alzheimer vascular type. She has been residing at [facility] and recently getting more agitated. No clear history of bipolar disorder, but the dementia has been progressively worsening. PAST PSYCHIATRIC HISTORY: Reportedly, she has also been on the [facility] with a diagnosis of dementia, bipolar disorder, tardive dyskinesia. PAST MEDICAL HISTORY: Positive for cancer and anemia of chronic disease, frequent UTIs, incontinence of stool. CURRENT PSYCHOTROPICS: Cymbalta and she had Geodon and Ativan in the ED. CT head done in the ED showed no acute changes. FAMILY HISTORY: Noncontributory. SOCIAL HISTORY: The patient resides at the above retirement. REVIEW OF SYSTEMS: Unobtainable. The patient is quite confused, sedated. MENTAL STATUS EXAMINATION: The patient is oriented to herself. Insight, judgment, recent and remote memory, attention, concentration, fund of knowledge poor consistent with her diagnosis, difficult to assess consequent to her sedation. She has received multiple p.r.n's for her behaviors causing this. IMPRESSION: Major neurocognitive disorder, Alzheimer vascular with delusion, depression, behavioral disturbance; bipolar disorder, mixed with psychotic features. Rest as above and the patient may have urinary tract infection and certainly had urinary retention. RECOMMENDATIONS: From a psychiatric standpoint, I would not do anything differently until she is medically stabilized. Perhaps the UTI may need to be treated and the urinary retention addressed. If behaviors persist despite all of this, I would be happy to make further suggestions for changes in her psychotropics. Dr. Puckett/Dr. Eaton, thank you for the opportunity to participate in your patient's care. We will follow with you. MAN Yuliet WELCH MD DR: BRANDON/jason JOB#: [id number] / [id number]
[2019-07-09 22:15] VITALS: BP 151/85
--- NOTE | 2019-07-10 04:38 | PN ---
DATE: 07/09/2019 PSYCHIATRIC PROGRESS NOTE This note covers elements not covered in my initial note, 07/09. SUBJECTIVE: I met with the patient in the evening. Discussed with Dr. Cabrera who has seen her for a Neurology consult. Reviewed the chart and discussed with nursing staff. Overall, the patient has been less agitated per nursing staff, more oriented at times, but when I met with her in the evening, orientation was quite limited. She was wearing mitts because she was trying to hit herself and thrashing on the bed. REVIEW OF SYSTEMS: No CV, , pulmonary, eye, ENT system symptoms on review. Reliability poor. MENTAL STATUS EXAMINATION: Oriented to herself. Insight, judgment, recent and remote memory, attention, concentration, fund of knowledge poor, consistent with her diagnosis granted that at times nursing staff states she is more oriented than other times. LABORATORY DATA: Reviewed. IMPRESSION: Major neurocognitive disorder, Alzheimer, vascular with delusion, depression, behavioral disturbance; bipolar disorder, unspecified. Rest unchanged. PLAN: Continue current psychotropics. Apparently, the patient has been screened by [facility] and may be transferred there or she may need an alternate alf placement. TENISHA WELCH MD DR: BRANDON/jason JOB#: [id number] / [id number]
--- NOTE | 2019-07-10 14:50 | PN ---
DATE: 07/09/2019 SUBJECTIVE: The patient is a 64-year-old who apparently was admitted to the emergency room on account of severe agitation, restlessness, ____ movement the upper and lower extremities. [facility] for multiple psychiatric problems including dementia and possible bipolar disorder. She was transferred to [facility] in [place] for further evaluation. Since admission to a halfway until recently, the patient has been very agitated, could not provide any information from [facility], has been restless, agitated since admission to the floor. She has been on Ativan, Benadryl, Cymbalta without ____ symptoms. She continued to be very restless, agitated. She has severe tardive dyskinesia secondary to previous use of psychotropic medication. Apparently, she was evaluated by the [facility] and we are still waiting for the decision to transfer her there. PHYSICAL EXAMINATION: GENERAL: When I examined her this afternoon, she looked pale, somewhat cachectic, but no jaundice, cyanosis or thyromegaly. No jugular venous distention or limb edema. VITAL SIGNS: Her heart rate was 87, blood pressure 121/69, temperature was 98.7, respiratory rate was 16, and oxygen saturation was 92% on room air. HEAD, EYES, EARS, NOSE AND THROAT: Showed normocephalic, atraumatic. NECK: Supple. HEART: Showed normal first and second heart sounds with no gallop or murmur. CHEST: Clear to auscultation. No crepitation or rhonchi. ABDOMEN: Distended, soft, nontender. No guarding or rigidity. No organomegaly. All hernial orifices intact. Bowel sounds normal. NEUROLOGIC: She is awake, alert, but she has a moderate expressive aphasia, unable to express herself or make her needs known. Although, her cranial nerves seem to be grossly intact. She moves extremities spontaneously, although she is mostly bed bound. LABORATORY DATA: As of yesterday showed a white cell count of 7800, hemoglobin 14, hematocrit 41, MCV 93, and platelet count 239,000. Her serum sodium 144, potassium 4.1, chloride 107, bicarbonate 27, anion gap of 10, BUN 9, creatinine 0.8, estimated GFR was 72 mL per minute. Her glucose 125 and calcium was 9.5. ASSESSMENT: 1. Tardive dyskinesia. 2. Bipolar disorder, anxiety and depression. 3. Dementia. Other medical problems include anemia of chronic disease and history of cancer, unspecified. PLAN: To wait for placement. DULCE LANDRY MD DR: IZABELLA/jason JOB#: [id number] / [id number]
--- NOTE | 2019-07-11 18:22 | PN ---
DATE: 07/09/2019 SUBJECTIVE: The patient is restless, confused, disoriented and unable to provide any information or answering any questions. OBJECTIVE: GENERAL: Well-developed, well-nourished female, not in acute distress, very restless, agitated, not communicative, does not answer any questions, does not follow any commands, thrashing her upper and lower extremities in bed and cannot concentrate. She has had frequent involuntarily movements of the upper and lower extremities, sometimes jerking type. VITAL SIGNS: Blood pressure 138/72, respiratory rate 20, pulse is 98 and regular, oxygen saturation 92% and temperature 96.8. HEENT: Normocephalic, atraumatic, otherwise unremarkable. NECK: Supple. Negative for carotid bruit, lymphadenopathy or thyromegaly. LUNGS: Clear to A and P. CARDIOVASCULAR: Regular rhythm, normal S1, S2. ABDOMEN: Soft. Bowel sounds positive. EXTREMITIES: Negative for cyanosis, clubbing or pitting edema. NEUROLOGICAL EXAM: The patient is awake, but disoriented, does not follow any commands, does not speak or communicate, easy distractive, have involuntarily movements of the upper and lower extremities. Further neurological evaluation is limited at this time because of behavioral changes. IMPRESSION: 1. Mental status changes multifactorial including dementia, behavior disturbances, and involuntarily movement. 2. Involuntarily movements of the upper and lower extremities, probably multifactorial including tardive dyskinesia from previous use of psychotropics. RECOMMENDATION: The patient needs to go back to previous psychiatric institution called [facility]. In the meantime, we will continue with current medications. M Savanna REBOLLEDO MD DR: AMBERLY/jason JOB#: [id number] / [id number]
== END 2019-07-09 23:24 | DRG 92 ==
LOC: ER 15:41 → 1 SOUTH 20:45
PROVIDERS: ADMIT Hospitalist; ATTEND Internal Medicine
DX: G24.01 Drug induced subacute dyskinesia (principal); F31.64 Bipolar disorder, current episode mixed, severe, with psychotic features; F41.0 Panic disorder [episodic paroxysmal anxiety]; G30.9 Alzheimer's disease, unspecified; F02.80 Dementia in other diseases classified elsewhere, unspecified severity, without behavioral disturbance, psychotic disturbance, mood disturbance, and anxiety; D63.8 Anemia in other chronic diseases classified elsewhere; M79.7 Fibromyalgia; G89.29 Other chronic pain; M54.16 Radiculopathy, lumbar region; M19.90 Unspecified osteoarthritis, unspecified site; F01.50 Vascular dementia, unspecified severity, without behavioral disturbance, psychotic disturbance, mood disturbance, and anxiety; F63.9 Impulse disorder, unspecified; G20 Parkinson's disease; G24.9 Dystonia, unspecified; Z87.440 Personal history of urinary (tract) infections; Z85.3 Personal history of malignant neoplasm of breast; Z91.19 Patient's noncompliance with other medical treatment and regimen; Z88.8 Allergy status to other drugs, medicaments and biological substances
CPT/HCPCS: 36415; 70450; 72125; 80048; 80053; 81001; 83735; 85025; 87086; 87641; 90471; 90686; 93005; 96365; 96372; 96375; 96376; J1200; J2060; J2270; J3486; J3490; J7120; Q0163; Q0177; 99285-25